=== PATIENT | male | born 1945 | race Caucasian/White ===

== ENCOUNTER 2017-08-11 21:24 | Emergency (ER) | payer MEDICARE, OTHER ==
[~2017-08-11] VITALS: Ht 180.3 cm; Wt 95.3 kg
[2017-08-11] MEDS ORDERED: HYDROCODONE/APAP 10MG-325MG TAB PO ONE (22:00)
[2017-08-11] MEDS ORDERED: LIDOCAINE HCL 1% LOCAL INJ 20 ML VIAL INJ ONE (22:00)
[2017-08-11] MEDS ORDERED: TETANUS/DIPHTHERIA TOX ADULT 0.5 ML SYR IM ONE (22:00)
--- NOTE | 2017-08-11 22:59 | Diagnostic Imaging Report ---
HAND 3+ VIEWS LEFT Comparison: None Clinical history: \S\S/P DOG BITE \S\Y Findings: Overlying bandaging. Mild first CMC/triscaphe degenerative changes. No acute bony abnormality. Linear 3 mm radiopaque density within the soft tissues adjacent to the fifth digit distal phalanx. Impression: No acute bony abnormality Linear 3 mm radiopaque density within the soft tissues adjacent to the fifth digit distal phalanx. Signed by: Dr Lexy Gonzalez MD on 08/11/2017 10:55 PM
[2017-08-12] MEDS ORDERED: BACITRACIN ZINC 0.9GM TP ONE (02:45)
== END 2017-08-12 03:48 | disposition home or self-care (01) ==
LOC: ER 21:24
DX: S60.572A Other superficial bite of hand of left hand, initial encounter (principal); W54.0XXA Bitten by dog, initial encounter; Y92.008 Other place in unspecified non-institutional (private) residence as the place of occurrence of the external cause; I10 Essential (primary) hypertension; E11.9 Type 2 diabetes mellitus without complications; K21.9 Gastro-esophageal reflux disease without esophagitis; E78.5 Hyperlipidemia, unspecified; G62.9 Polyneuropathy, unspecified
CPT/HCPCS: 13132; 73130; 90471; 90714; 99283; J2001

== ENCOUNTER → 2021-01-30 | Day surgery (SDC) | payer MEDICARE ==
[2021-01-27 14:13] LABS: BASOPHILS # (AUTO) 0.1 (0.0-0.1); BASOPHILS % 0.6 % (0.0-1.0); EOSINOPHILS # (AUTO) 0.1 (0.0-0.4); EOSINOPHILS % 0.6 % (0.0-6.0); HEMOGLOBIN 16.5 g/dL (14.0-18.0); LYMPHOCYTES # (AUTO) 2.5 (1.0-3.2); LYMPHOCYTES % 32.1 % (18.0-39.1); MEAN CORPUSCULAR HEMOGLOBIN 30.1 pg (28-32); MEAN CORPUSCULAR VOLUME 91.1 fL (81-99); MONOCYTES # (AUTO) 0.4 (0.2-0.8); MONOCYTES % 5.6 % (4.4-11.3); NEUTROPHILS # (AUTO) 4.7 (2.1-6.9); NEUTROPHILS % 60.7 % (38.7-80.0); PLATELET COUNT 146 x10e3/uL (140-360); RED BLOOD COUNT 5.49 x10e6/uL (4.3-5.7); RED CELL DISTRIBUTION WIDTH 12.6 % (11.7-14.4)
[2021-01-27 14:31] LABS: ANION GAP 15.9 mmol/L (8-16); CALCIUM 9.4 mg/dL (8.4-10.2); CREATININE, SERUM 0.98 mg/dL (0.72-1.25); POTASSIUM 4.9 mmol/L (3.5-5.1)
[~2021-01-30] MED LIST: AMLODIPINE BESY10 MG PO; ASPIRIN81 MG PO; BUPIVACAINE HCL 0.5% INJ 30 ML VIAL INJ ONE; DEXAMETHASONE SOD PHOS INJ 4 MG/ML VIAL ONE; FENTANYL CITRATE/PF 100MCG/2 ML INJ ONE; GABAPENTIN400 MG PO; GLIPIZIDE ER5 MG PO; HYDROCHLOROTHIA25 MG PO; KETOROLAC TROMETHAMINE 30 MG/ML VIAL ONE; LIDOCAINE HCL 2% LOCAL INJ 5 ML SDV VIAL INJ ONE; METOPROLOL SUCC50 MG PO; ONDANSETRON HCL INJ 2MG/ML 2ML 2 MG/ML VIAL ONE; POVIDONE IODINE 0.05% 0.05 % ML PO ONE; PROPOFOL IV EMULSION 10 MG/ML 20 ML VIAL ONE; SEVOFLURANE INHAL SOLN 250 ML PEN BTL ONE; SODIUM CHLORIDE 0.9% 50ML 100 ML ONE; SPIRONOLACTONE25 MG PO
[2021-01-30 12:15] VITALS: BP 141/73
== END | disposition home or self-care (01) ==
LOC: OR 06:01
PROVIDERS: ATTEND Podiatrist Foot Surgery
DX: M21.621 Bunionette of right foot (principal); M20.41 Other hammer toe(s) (acquired), right foot; Z01.810 Encounter for preprocedural cardiovascular examination; Z01.812 Encounter for preprocedural laboratory examination; Z01.818 Encounter for other preprocedural examination; Z20.822 Contact with and (suspected) exposure to COVID-19; Z88.8 Allergy status to other drugs, medicaments and biological substances; L97.412 Non-pressure chronic ulcer of right heel and midfoot with fat layer exposed
CPT/HCPCS: 11042; 28110; 28285 ×5; 36415 ×2; 71046; 80048; 82948; 85025; 93005; C1713 ×5; J0690; J1100; J1885; J2001; J2405; J2704; J3010; Q4100; U0002; 76000

== ENCOUNTER → 2021-08-28 | Day surgery (SDC) | payer MEDICARE ==
[2021-08-26 14:30] LABS: BASOPHILS % 0.4 % (0.0-1.0); EOSINOPHILS # (AUTO) 0.1 (0.0-0.4); EOSINOPHILS % 0.6 % (0.0-6.0); HEMATOCRIT 48.6 % (38.2-49.6); LYMPHOCYTES # (AUTO) 2.7 (1.0-3.2); LYMPHOCYTES % 32.9 % (18.0-39.1); MEAN CORPUSCULAR HEMOGLOBIN 30.4 pg (28-32); MEAN CORPUSCULAR HGB CONC 32.9 g/dL (31-35); MEAN CORPUSCULAR VOLUME 92.4 fL (81-99); MONOCYTES # (AUTO) 0.5 (0.2-0.8); MONOCYTES % 6.2 % (4.4-11.3); NEUTROPHILS # (AUTO) 4.9 (2.1-6.9); NEUTROPHILS % 59.4 % (38.7-80.0); PLATELET COUNT 141 x10e3/uL (140-360); RED BLOOD COUNT 5.26 x10e6/uL (4.3-5.7); RED CELL DISTRIBUTION WIDTH 13.2 % (11.7-14.4)
[2021-08-26 14:46] LABS: ANION GAP 14.3 mmol/L (8-16); CALCIUM 9.7 mg/dL (8.4-10.2); CREATININE, SERUM 0.86 mg/dL (0.72-1.25); POTASSIUM 4.3 mmol/L (3.5-5.1)
[~2021-08-28] MED LIST changes: +DEXAMETHASONE SOD PHOS INJ 4 MG/ML SDV ONE; -DEXAMETHASONE SOD PHOS INJ 4 MG/ML VIAL ONE; +MIDAZOLAM HCL 2 MG/2 ML VIAL ONE; +NEOSTIGMINE 1 MG/ML 10ML VIAL ONE; -SODIUM CHLORIDE 0.9% 50ML 100 ML ONE
[2021-08-28 09:30] VITALS: BP 152/87
== END | disposition home or self-care (01) ==
LOC: OR 06:16
PROVIDERS: ATTEND Podiatrist Foot Surgery
DX: T84.84XA Pain due to internal orthopedic prosthetic devices, implants and grafts, initial encounter (principal); S92.351A Displaced fracture of fifth metatarsal bone, right foot, initial encounter for closed fracture; I10 Essential (primary) hypertension; E11.9 Type 2 diabetes mellitus without complications; X58.XXXA Exposure to other specified factors, initial encounter; Y83.8 Other surgical procedures as the cause of abnormal reaction of the patient, or of later complication, without mention of misadventure at the time of the procedure; Z88.8 Allergy status to other drugs, medicaments and biological substances; Z01.810 Encounter for preprocedural cardiovascular examination; Z01.812 Encounter for preprocedural laboratory examination; Z20.822 Contact with and (suspected) exposure to COVID-19; Z79.82 Long term (current) use of aspirin; Z79.84 Long term (current) use of oral hypoglycemic drugs; Z79.899 Other long term (current) drug therapy
CPT/HCPCS: 28485; 36415 ×2; 76000; 80048; 82948; 85025; 93005; C1713 ×2; J0690; J1100; J1885; J2001; J2250; J2405; J2704; J2710; J3010; Q4100; U0002